=== PATIENT | male | born 1960 | race Two or more races ===

== ENCOUNTER 2020-03-08 00:41 | Emergency (ER) | payer BC, OTHER ==
[~2020-03-08] VITALS: Ht 172.7 cm; Wt 108.9 kg
[2020-03-08] MEDS: LIDOCAINE 1% HCL (LOCAL ANESTH.) INJ 20ML MDV ONE ×2 (03:30→03:42)
[2020-03-08 04:05] VITALS: BP 138/70
== END 2020-03-08 04:48 | disposition home or self-care (01) ==
LOC: EDBD 00:41 → ER 00:44
DX: S01.81XA Laceration without foreign body of other part of head, initial encounter (principal); S01.01XA Laceration without foreign body of scalp, initial encounter; Y04.2XXA Assault by strike against or bumped into by another person, initial encounter; Y93.89 Activity, other specified; Y92.098 Other place in other non-institutional residence as the place of occurrence of the external cause; Y99.8 Other external cause status
CPT/HCPCS: 12001; 12014; 70450; 70486; 72125; 99285; J2001